=== PATIENT | male | born 1985 | race African-American/Black ===

== ENCOUNTER 2017-05-27 15:43 | Emergency (ER) | payer SELFPAY ==
[~2017-05-27] VITALS: Ht 172.7 cm; Wt 80.0 kg
[2017-05-27 15:45] VITALS: BP 147/83; PULSE 87; RESP 16; TEMP 98.3; O2SAT 100
== END 2017-05-27 17:20 | disposition left against medical advice (07) ==
LOC: NED 15:43
DX: J02.9 Acute pharyngitis, unspecified (principal); Z53.21 Procedure and treatment not carried out due to patient leaving prior to being seen by health care provider
CPT/HCPCS: 99281

== ENCOUNTER 2017-07-09 20:02 | Emergency (ER) | payer OTHER ==
[~2017-07-09] VITALS: Ht 170.2 cm; Wt 75.0 kg
[2017-07-09 20:10] VITALS: BP 141/89; PULSE 72; RESP 16; TEMP 98.9; O2SAT 98
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
[2017-07-09 23:03] VITALS: BP 137/72; PULSE 56; RESP 18; O2SAT 100
[2017-07-09] MEDS ORDERED: CYCL10TA PO (23:38)
[2017-07-09] MEDS ORDERED: DICL75TA PO (23:38)
[2017-07-09] MEDS ORDERED: ACETAMINOPHEN/HYDROcodone 325 MG/5 MG TAB PO ONE (23:45)
[2017-07-09] MEDS ORDERED: CYCLOBENZAPRINE HCL 10 MG TAB PO ONE (23:45)
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
== END 2017-07-10 00:35 | disposition home or self-care (01) ==
LOC: NEPD 20:02
DX: S16.1XXA Strain of muscle, fascia and tendon at neck level, initial encounter (principal); S29.012A Strain of muscle and tendon of back wall of thorax, initial encounter; V49.40XA Driver injured in collision with unspecified motor vehicles in traffic accident, initial encounter; Y92.410 Unspecified street and highway as the place of occurrence of the external cause
CPT/HCPCS: 70450; 72125